=== PATIENT | female | born 2000 | race Caucasian/White ===

== ENCOUNTER 2020-06-02 05:00 | Inpatient (IN) | payer MEDICAID, OTHER ==
[~2020-06-02] VITALS: Ht 157.5 cm; Wt 98.4 kg
[2020-06-02] MEDS ORDERED: LIDOCAINE HCL 1% 20ML VIAL (Pyxis) INJ INFIL SCH (05:45)
[2020-06-02] MEDS ORDERED: NALOXONE HCL 0.4 MG/ML 1ML VIAL IM PRN (05:45)
[2020-06-02] MEDS ORDERED: LACTATED RINGERS 1,000 ML IV SCH (05:45)
[2020-06-02] MEDS ORDERED: BUTORPHANOL TARTRATE 2 MG/ML VIAL IV PRN (05:45)
[2020-06-02] MEDS ORDERED: CARBOPROST TROMETHAMINE 250 MCG/ML AMPUL IM PRN (05:45)
[2020-06-02] MEDS ORDERED: DEXT 5%/LR + PITOCIN 20UNITS/L 1,000 ML IV SCH ×2 (05:45→07:15)
[2020-06-02] MEDS ORDERED: METHYLERGONOVINE MALEATE 0.2 MG/ML IM PRN (05:45)
[2020-06-02] MEDS ORDERED: PENICILLIN G POTASSIUM 5 MMU in DEXT 5% WATER 100 ML IV SCH (06:00)
[2020-06-02 06:26] LABS: BASOPHILS % 0.1 % (0.0-2.0); EOSINOPHILS % 0.6 % (0.0-5.0); HEMATOCRIT. 29.6 % (36.0-48.0); HEMOGLOBIN. 9.6 g/dL (12.0-16.0); LYMPHOCYTES % 21.7 % (20.0-50.0); MEAN CORPUSCULAR HEMOGLOBIN 23.6 pg (28.0-32.0); MEAN CORPUSCULAR VOLUME 72.3 fL (81.0-99.0); MEAN PLATELET VOLUME 8.9 fl (7.4-10.4); MONOCYTES % 3.8 % (2.0-8.0); NEUTROPHILS % 73.8 % (40.0-76.0); PLATELET 315 x1000/uL (130-400); RED BLOOD CELL COUNT 4.09 mill/uL (4.2-5.4); RED CELL DISTRIBUTION WIDTH 16.3 % (11.6-14.6)
[2020-06-02 06:53] LABS: CLARITY URINE TURBID (CLEAR); COLOR URINE YELLOW (YELLOW); KETONES URINE 1+ (NEGATIVE); LEUKOCYTE ESTERASE URINE 3+ (NEGATIVE); NITRITE URINE NEGATIVE (NEGATIVE); OCCULT BLOOD URINE 2+ (NEGATIVE); PROTEIN URINE 1+ (NEGATIVE); SPECIFIC GRAVITY URINE 1.025 (1.005-1.030)
[2020-06-02 07:04] LABS: *AMPHETAMINES SCREEN URINE NEGATIVE (NEGATIVE); *BARBITURATES SCREEN URINE NEGATIVE (NEGATIVE); *BENZODIAZEPINES SCREEN URINE NEGATIVE (NEGATIVE); *COCAINE SCREEN URINE NEGATIVE (NEGATIVE); CANNABINOID URINE SCREEN NEGATIVE (NEGATIVE); OPIATES URINE SCREEN NEGATIVE (NEGATIVE); PHENCYCLIDINE URINE SCREEN NEGATIVE (NEGATIVE)
[2020-06-02 07:05] LABS: METHADONE URINE SCREEN NEGATIVE (NEGATIVE)
[2020-06-02 07:08] LABS: PARTIAL THROMBOPLASTIN TIME 28.6 sec (23.4-31.0)
[2020-06-02 07:13] LABS: HEPATITIS B SURFACE ANTIGEN NEGATIVE
[2020-06-02] MEDS ORDERED: BENZOCAINE/LANOLIN/ALOE VERA SPRAY TOP PRN (07:15)
[2020-06-02] MEDS ORDERED: IBUPROFEN 400MG TABLET PO PRN (07:15)
[2020-06-02] MEDS ORDERED: RHO(D) IMMUNE GLOBULIN 300 MCG/SYR IM PRN (07:15)
[2020-06-02 08:25] VITALS: BP 105/52
[2020-06-02] MEDS ORDERED: PENICILLIN G POTASSIUM 2.5 MMU in DEXTROSE 5% WATER 50 ML IV SCH (10:00)
[2020-06-02] MEDS: IBUPROFEN 800MG TABLET PO PRN ×2 (12:08→18:02)
[2020-06-02 16:25] VITALS: BP 106/50
[2020-06-02 20:00] VITALS: BP 112/58
[2020-06-03] MEDS: IBUPROFEN 800MG TABLET PO PRN ×2 (00:34→10:04)
[2020-06-03 03:35] VITALS: BP 111/51
[2020-06-03 06:52] LABS: BASOPHILS % 0.2 % (0.0-2.0); HEMATOCRIT. 28.4 % (36.0-48.0); LYMPHOCYTES % 38.4 % (20.0-50.0); MEAN CORPUSCULAR HEMOGLOBIN 23.4 pg (28.0-32.0); MEAN CORPUSCULAR VOLUME 73.9 fL (81.0-99.0); MEAN PLATELET VOLUME 8.8 fl (7.4-10.4); MONOCYTES % 4.1 % (2.0-8.0); NEUTROPHILS % 55.3 % (40.0-76.0); PLATELET 306 x1000/uL (130-400); RED BLOOD CELL COUNT 3.84 mill/uL (4.2-5.4); RED CELL DISTRIBUTION WIDTH 16.6 % (11.6-14.6)
[2020-06-03 08:00] VITALS: BP 102/43
[2020-06-03] MEDS ORDERED: INFLUENZA VACCINE 05/PF 0.5 ML VIAL IM ONE (11:00)
[2020-06-03] MEDS ORDERED: IBUP-2030 PO (12:47)
== END 2020-06-03 15:00 | disposition home or self-care (01) | DRG 560 ==
LOC: OBSVTOIN 05:00 → 8 EST LDRP 05:00 → 8EST 08:04
PROVIDERS: ADMIT Obstetrics & Gynecology; ATTEND Obstetrics & Gynecology
PROC: 10E0XZZ Delivery of Products of Conception, External Approach (ICD-10-PCS; principal; 2020-06-02)
PROC: 0W8NXZZ Division of Female Perineum, External Approach (ICD-10-PCS; 2020-06-02)
DX: O77.0 Labor and delivery complicated by meconium in amniotic fluid (principal); O48.0 Post-term pregnancy; O69.81X0 Labor and delivery complicated by cord around neck, without compression, not applicable or unspecified; Z3A.38 38 weeks gestation of pregnancy; Z37.0 Single live birth; Z88.6 Allergy status to analgesic agent; Z88.8 Allergy status to other drugs, medicaments and biological substances
CPT/HCPCS: 36415; 80305; 81003; 85025; 86592; 86703; 86762; 86850; 86900; 87340; 90686; 99281; J0595; J2310; J2540; J2590; J3490; J7060; J7120